=== PATIENT | male | born 1995 | race Caucasian/White ===

== ENCOUNTER 2021-11-23 19:29 | Emergency (ER) | payer OTHER ==
[~2021-11-23] VITALS: Ht 185.4 cm; Wt 106.6 kg
== END 2021-11-23 21:27 | disposition home or self-care (01) ==
LOC: ER 19:29
DX: J06.9 Acute upper respiratory infection, unspecified (principal); F10.20 Alcohol dependence, uncomplicated; Z20.822 Contact with and (suspected) exposure to COVID-19
CPT/HCPCS: 99283

== ENCOUNTER 2022-10-05 14:07 | Inpatient (IN) | payer OTHER ==
[~2022-10-05] VITALS: Ht 188 cm; Wt 138.4 kg
[2022-10-05 15:38] LABS: BASOPHILS ABSOLUTE AUTO 0.05 K/mm3 (0.00-0.23); BASOPHILS PERCENT AUTO 0 % (0-2); EOSINOPHILS PERCENT AUTO 0 % (0-6); Hemoglobin 14.3 g/dL (13.5-17.5); IMMATURE GRAN ABSOLUTE AUTO 0.24 K/mm3 (0.00-0.10); IMMATURE GRAN PERCENT AUTO 2 % (0-1); LYMPHOCYTES ABSOLUTE AUTO 1.44 K/mm3 (0.84-5.20); LYMPHOCYTES PERCENT AUTO 11 % (21-46); MONOCYTES ABSOLUTE AUTO 1.08 K/mm3 (0.16-1.47); MONOCYTES PERCENT AUTO 8 % (4-13); Mean Corpuscular HGB 34.2 pg (26.0-34.0); Mean Corpuscular HGB Conc 36.7 g/dL (31.5-36.5); Mean Corpuscular Volume 93 fL (80-100); Mean Platelet Volume 10.6 fL (9.1-12.4); NEUTROPHILS ABSOLUTE AUTO 10.24 K/mm3 (1.96-9.15); NEUTROPHILS PERCENT AUTO 79 % (41-73); NRBC ABSOLUTE 0.31 K/mm3 (0.00-0.02); NRBC Auto 2.4 /100 WBC (0.0-0.2); Platelet Count 159 K/mm3 (150-400); RDW Coefficient Variation 13.7 % (11.7-14.2); RDW Standard Deviation 46.8 fL (35.1-46.3); Red Blood Cell Count 4.18 M/mm3 (4.30-5.90); White Blood Cell Count 13.05 K/mm3 (4.00-11.30)
[2022-10-05 16:02] LABS: Albumin, Blood 2.6 g/dL (3.4-5.0); Albumin/Globulin Ratio 0.6 (0.8-1.8); Bilirubin, Total 1.7 mg/dL (0.1-1.0); Bun/Creatinine Ratio 13.5 (12.0-20.0); Calcium, Blood 8.4 mg/dL (8.5-10.1); Creatinine, Blood 1.55 mg/dL (0.60-1.20); Globulin, Blood 4.2 g/dL (2.2-4.0); Potassium, Blood 3.3 mmol/L (3.5-5.5); Total Protein, Blood 6.8 g/dL (6.4-8.2)
[2022-10-05 21:55] LABS: Magnesium, Blood 1.6 mg/dL (1.6-2.4); Phosphorus, Blood 4.5 mg/dL (2.5-4.9)
--- NOTE | 2022-10-06 01:22 | NUR ---
PATIENT IS A NEW ADMIT FROM THE ED. FOUR PERSON TRANSFER FROM [facility] TO BED. AXO X4 AND BEDREST. ON 2L O2 NC AND RA BASELINE. DENIES CHEST PAIN AND N/V. DARK LIQUID STOOLS. TELEMETRY PLACED AND TECH REPORTS ST 119. NS STARTED @ 200mL/HR X ONE BAG. ORIENTED TO ROOM AND CALL LIGHT SYSTEM. MILD TREMORS AND MILD PAROXYSMAL SWEATS WITH HEADACHE. RESTING IN BED. WCTM.
--- NOTE | 2022-10-06 04:39 | NUR ---
SHIFT SUMMARY PATIENT HAD NO ACUTE CHANGES. AXOX 4 AND BEDREST. ON 2L O2 NC AND RA BASELINE. PIVS REMAIN INTACT. NS INFUSING AT 200 mL/HR X ONE BAG. VSS WITH LOW GRADE TEMP. CIWA SCORE IS SIX. TYELNOL 650 MG GIVEN FOR PEREZ X ONE. CORPORATE HUMAN RESOURCES MANAGER REPORTS ST IN THE HIGH TEENS. USES URINAL AT BEDSIDE. REPORTS LAST DRINK 10/04 CLOSE TO MIDNIGHT. HOSPITALIST DR CARVAJAL ORDER MICONAZOLE POWDER FOR GROIN AREA RASH. BLACK LIQUID STOOLS. RESTING IN BED AWAKE MOST OF THE SHIFT. CALL LIGHT IN REACH. BED IN LOWEST POSITION. WILL CONTINUE TO MONITOR UNTIL DAY SHIFT NURSE ASSUMES CARE.
[2022-10-06 05:35] LABS: BASOPHILS ABSOLUTE AUTO 0.05 K/mm3 (0.00-0.23); BASOPHILS PERCENT AUTO 1 % (0-2); EOSINOPHILS ABSOLUTE AUTO 0.01 K/mm3 (0.00-0.68); EOSINOPHILS PERCENT AUTO 0 % (0-6); Hematocrit 33.7 % (37.0-53.0); IMMATURE GRAN ABSOLUTE AUTO 0.09 K/mm3 (0.00-0.10); IMMATURE GRAN PERCENT AUTO 1 % (0-1); LYMPHOCYTES PERCENT AUTO 17 % (21-46); MONOCYTES ABSOLUTE AUTO 0.51 K/mm3 (0.16-1.47); MONOCYTES PERCENT AUTO 6 % (4-13); Mean Corpuscular HGB Conc 35.6 g/dL (31.5-36.5); Mean Corpuscular Volume 96 fL (80-100); Mean Platelet Volume 10.2 fL (9.1-12.4); NEUTROPHILS ABSOLUTE AUTO 6.37 K/mm3 (1.96-9.15); NEUTROPHILS PERCENT AUTO 76 % (41-73); NRBC ABSOLUTE 0.04 K/mm3 (0.00-0.02); NRBC Auto 0.5 /100 WBC (0.0-0.2); Platelet Count 122 K/mm3 (150-400); RDW Coefficient Variation 13.4 % (11.7-14.2); RDW Standard Deviation 47.3 fL (35.1-46.3); Red Blood Cell Count 3.53 M/mm3 (4.30-5.90); White Blood Cell Count 8.43 K/mm3 (4.00-11.30)
[2022-10-06 05:58] LABS: Albumin, Blood 2.3 g/dL (3.4-5.0); Albumin/Globulin Ratio 0.7 (0.8-1.8); Bilirubin, Total 1.5 mg/dL (0.1-1.0); Bun/Creatinine Ratio 21.9 (12.0-20.0); Calcium, Blood 7.4 mg/dL (8.5-10.1); Creatinine, Blood 1.14 mg/dL (0.60-1.20); Globulin, Blood 3.4 g/dL (2.2-4.0); Magnesium, Blood 1.8 mg/dL (1.6-2.4); Phosphorus, Blood 3.8 mg/dL (2.5-4.9); Potassium, Blood 3.5 mmol/L (3.5-5.5); Total Protein, Blood 5.7 g/dL (6.4-8.2)
[2022-10-06 12:41] LABS: International Normalized Ratio 1.25; Prothrombin Time Results 12.9 Sec (9.7-11.5)
--- NOTE | 2022-10-06 16:12 | NUR ---
SHIFT SUMMARY PATIENT IS ALERT AND ORIENTED. PATIENT HAS HAD NO ACUTE EVENTS THIS SHIFT. PATIENT HAS HAD A HIGHER CIWA THIS MORNING BUT HAS TRENDED LOWER. MEDICATED PER EMAR. PATIENT WAS MEDICATED FOR PAIN ONCE FOR HAND CRAMPING. PATIENT HAS HAD NO NAUSEA, VOMITTING OR SOB THIS SHIFT. VITAL SIGNS REVIEWED. BED IN LOCKED AND LOWEST POSITION. CALL LIGHT IN PLACE. WILL MONITOR UNTIL SHIFT CHANGE.
--- NOTE | 2022-10-07 04:33 | NUR ---
Patient resting in bed, able to make needs known, has not moved from bed this shift.
[2022-10-07 06:02] LABS: Magnesium, Blood 1.9 mg/dL (1.6-2.4)
[2022-10-07 06:03] LABS: Albumin, Blood 2.4 g/dL (3.4-5.0); Albumin/Globulin Ratio 0.6 (0.8-1.8); Creatinine, Blood 0.82 mg/dL (0.60-1.20); Globulin, Blood 3.7 g/dL (2.2-4.0); Potassium, Blood 3.2 mmol/L (3.5-5.5); Total Protein, Blood 6.1 g/dL (6.4-8.2)
--- NOTE | 2022-10-07 16:12 | NUR ---
SHIFT SUMMARY PATIENT IS ALERT AND ORIENTED. PATIENT HAS HAD NO ACUTE EVENTS THIS SHIFT. VITAL SIGNS REVIEWED. PATIENT WORKED WITH PT TODAY WITH MILD SUCCESS. PT DETERMINED PATIENT TO WEAK TO STAND. PATIENT USING BEDPAN NOW, OF WHICH IS AN IMPROVEMENT FROM PRIOR SHIFTS. PATIENTS PARENTS ARE AWARE OF SITUATION AND THE NEED TO STAY LONGER.
--- NOTE | 2022-10-08 01:32 | NUR ---
Patient continually pulling telemetry leads off, patient educated on need for telemetry, patient expresses understanding, but continues to pull leads off and state it was a mistake.
[2022-10-08 04:52] LABS: BASOPHILS ABSOLUTE AUTO 0.06 K/mm3 (0.00-0.23); BASOPHILS PERCENT AUTO 1 % (0-2); EOSINOPHILS ABSOLUTE AUTO 0.03 K/mm3 (0.00-0.68); EOSINOPHILS PERCENT AUTO 1 % (0-6); Hematocrit 31.9 % (37.0-53.0); Hemoglobin 11.3 g/dL (13.5-17.5); IMMATURE GRAN ABSOLUTE AUTO 0.02 K/mm3 (0.00-0.10); IMMATURE GRAN PERCENT AUTO 1 % (0-1); LYMPHOCYTES ABSOLUTE AUTO 1.55 K/mm3 (0.84-5.20); LYMPHOCYTES PERCENT AUTO 36 % (21-46); MONOCYTES ABSOLUTE AUTO 0.55 K/mm3 (0.16-1.47); MONOCYTES PERCENT AUTO 13 % (4-13); Mean Corpuscular HGB 33.9 pg (26.0-34.0); Mean Corpuscular HGB Conc 35.4 g/dL (31.5-36.5); Mean Corpuscular Volume 96 fL (80-100); Mean Platelet Volume 10.4 fL (9.1-12.4); NEUTROPHILS ABSOLUTE AUTO 2.16 K/mm3 (1.96-9.15); NEUTROPHILS PERCENT AUTO 49 % (41-73); NRBC ABSOLUTE 0.02 K/mm3 (0.00-0.02); NRBC Auto 0.5 /100 WBC (0.0-0.2); Platelet Count 126 K/mm3 (150-400); RDW Coefficient Variation 13.2 % (11.7-14.2); RDW Standard Deviation 46.5 fL (35.1-46.3); Red Blood Cell Count 3.33 M/mm3 (4.30-5.90); White Blood Cell Count 4.37 K/mm3 (4.00-11.30)
--- NOTE | 2022-10-08 05:00 | NUR ---
Patient resting in bed at this time, continues to use urinal and bed gracia, has not gotten out of bed.
[2022-10-08 05:02] LABS: Albumin, Blood 2.4 g/dL (3.4-5.0); Albumin/Globulin Ratio 0.7 (0.8-1.8); Bilirubin, Total 0.8 mg/dL (0.1-1.0); Bun/Creatinine Ratio 11.1 (12.0-20.0); Calcium, Blood 7.9 mg/dL (8.5-10.1); Creatinine, Blood 0.72 mg/dL (0.60-1.20); Globulin, Blood 3.6 g/dL (2.2-4.0); Potassium, Blood 3.4 mmol/L (3.5-5.5)
[2022-10-08 13:02] LABS: Source, Urine Clean Catch
[2022-10-08 13:14] LABS: Appearance, Urine Clear (Clear); Bilirubin, Urine Neg (Neg); Blood, Urine Neg (Neg); Color, Urine Yellow (P-Yellow); Glucose Qualitative, Urine Neg (Neg); Ketones, Urine Neg (Neg); Leukocyte Esterase, Urine Neg (Neg); Nitrite, Urine Neg (Neg); Protein, Urine Neg (Neg); Specific Gravity, Urine 1.005 (1.003-1.022); Urobilinogen, Urine NORM (Normal)
--- NOTE | 2022-10-08 18:58 | NUR ---
SHIFT SUMMARY: PATIENT A&OX4. PLEASANT AND COOPERATIVE WITH CARE. USES CALL LIGHT APPROPRIATELY. PATIENT USES URINAL INDEPENDENTLY AND BEDPAN WITH 1 ASSIST. AROUND 1445 PATIENT WAS FOUND SITTING UP ON THE BATHROOM FLOOR. PATIENT REPORTS HE SLID DOWN TO THE FLOOR ON HIS RIGHT KNEE AND CRAWLED TO BATHROOM AND TRIED TO STAND AND FELL. PATIENT REPORTS THAT HE WAS DAY DREAMING. ASSESS PATIENT FOR ANY INJURY. VITAL SIGNS TAKEN AND TRANSFERRED BACK TO BED USING [facility] [place] 2[place] [facility] MATTR[facility]. [employer]AGE BROKER ALEXANDER WRAY WAS NOTIFIED AND CALLED HOSPITALIST BUT WAS NOT ABLE TO REACH AT THE TIME WAS PLACE. THIS RN LEFT A MESSAGE TO CALL BACK. VITAL SIGNS REVIEWED. BED ALARM ON FOR SAFETY AND CALL LIGHT IN REACH.
--- NOTE | 2022-10-09 03:25 | NUR ---
Patient resting in room, calling appropriately.
[2022-10-09 04:42] LABS: Hematocrit 32.6 % (37.0-53.0); Hemoglobin 11.3 g/dL (13.5-17.5); Mean Corpuscular HGB 33.6 pg (26.0-34.0); Mean Corpuscular HGB Conc 34.7 g/dL (31.5-36.5); Mean Corpuscular Volume 97 fL (80-100); Mean Platelet Volume 10.8 fL (9.1-12.4); NRBC ABSOLUTE 0.02 K/mm3 (0.00-0.02); NRBC Auto 0.5 /100 WBC (0.0-0.2); Platelet Count 131 K/mm3 (150-400); RDW Coefficient Variation 13.9 % (11.7-14.2); Red Blood Cell Count 3.36 M/mm3 (4.30-5.90); White Blood Cell Count 3.79 K/mm3 (4.00-11.30)
[2022-10-09 04:56] LABS: Albumin, Blood 2.4 g/dL (3.4-5.0); Albumin/Globulin Ratio 0.6 (0.8-1.8); Bilirubin, Total 0.6 mg/dL (0.1-1.0); Bun/Creatinine Ratio 9.9 (12.0-20.0); Calcium, Blood 7.9 mg/dL (8.5-10.1); Creatinine, Blood 0.61 mg/dL (0.60-1.20); Globulin, Blood 3.7 g/dL (2.2-4.0); Magnesium, Blood 2.1 mg/dL (1.6-2.4); Potassium, Blood 3.4 mmol/L (3.5-5.5); Total Protein, Blood 6.1 g/dL (6.4-8.2)
[2022-10-09 05:50] LABS: BAND PERCENT MAN 5 % (0-8); BASOPHILS ABSOLUTE MAN 0.03 K/mm3 (0.00-0.23); BASOPHILS PERCENT MAN 1 % (0-2); EOSINOPHILS ABSOLUTE MAN 0.07 K/mm3 (0.00-0.68); EOSINOPHILS PERCENT MAN 2 % (0-6); LYMPHOCYTES % ATYPICAL MANUAL 1 % (0-0); LYMPHOCYTES ABSOLUTE MAN 1.21 K/mm3 (0.84-5.20); LYMPHOCYTES PERCENT MAN 31 % (21-46); MONOCYTES ABSOLUTE MAN 0.34 K/mm3 (0.16-1.47); MONOCYTES PERCENT MAN 9 % (4-13); NEUTROPHILS ABSOLUTE MAN 2.12 K/mm3 (1.96-9.15); SEG NEUTROPHILS PERCENT MAN 51 % (41-73); TOTAL CELLS COUNTED 100
--- NOTE | 2022-10-09 09:24 | NUR ---
pt laying in bed watching tv, a/ox3, cooperative with care, follows commands, profoundly weak, unable to sit up on his own but can roll shoulders for assessment, lungs are clear in upper mandel, on r/a, resp even and unlabored, occ cough noted, he reports bringing up clear phlem, hrr, tachy, +1 edema noted to b/l le, ppp+2, cap refill <3sec, vs stable, afebrile, iv site is clear and patent, btx4, abd flat soft nontender, voids without diff, incont of stool and urine, but will ask for bedpan, had a loose brown stool this am, skin c/w/d, moves arms well, dpfe is very weak, sarwat, call light in reach.
--- NOTE | 2022-10-09 18:02 | NUR ---
pt has had multiple loose stools today, slept when left undisturbed. no acute changes this shift. call light in reach.
--- NOTE | 2022-10-10 03:38 | NUR ---
SHIFT SUMMARY NO OVERNIGHT EVENTS. DENIES ANY PAIN/SOB/S/S OF DISTRESS. PT USING URINAL, NO BM THIS SHIFT. PT ABLE TO USE CALL LIGHT. WILL CONTINUE TO MONITOR
[2022-10-10 04:42] LABS: BASOPHILS ABSOLUTE AUTO 0.03 K/mm3 (0.00-0.23); BASOPHILS PERCENT AUTO 1 % (0-2); EOSINOPHILS PERCENT AUTO 3 % (0-6); Hematocrit 32.6 % (37.0-53.0); Hemoglobin 11.3 g/dL (13.5-17.5); Mean Corpuscular HGB 33.6 pg (26.0-34.0); Mean Corpuscular HGB Conc 34.7 g/dL (31.5-36.5); Mean Corpuscular Volume 97 fL (80-100); Mean Platelet Volume 10.5 fL (9.1-12.4); Platelet Count 143 K/mm3 (150-400); RDW Coefficient Variation 14.1 % (11.7-14.2); RDW Standard Deviation 50.2 fL (35.1-46.3); Red Blood Cell Count 3.36 M/mm3 (4.30-5.90)
[2022-10-10 04:47] LABS: IMMATURE GRAN ABSOLUTE AUTO 0.02 K/mm3 (0.00-0.10); IMMATURE GRAN PERCENT AUTO 1 % (0-1); LYMPHOCYTES ABSOLUTE AUTO 1.79 K/mm3 (0.84-5.20); LYMPHOCYTES PERCENT AUTO 48 % (21-46); MONOCYTES ABSOLUTE AUTO 0.53 K/mm3 (0.16-1.47); MONOCYTES PERCENT AUTO 14 % (4-13); NEUTROPHILS ABSOLUTE AUTO 1.23 K/mm3 (1.96-9.15); NEUTROPHILS PERCENT AUTO 33 % (41-73)
[2022-10-10 05:04] LABS: Albumin, Blood 2.3 g/dL (3.4-5.0); Albumin/Globulin Ratio 0.6 (0.8-1.8); Bilirubin, Total 0.7 mg/dL (0.1-1.0); Bun/Creatinine Ratio 6.9 (12.0-20.0); Creatinine, Blood 0.58 mg/dL (0.60-1.20); Globulin, Blood 3.6 g/dL (2.2-4.0); Potassium, Blood 3.7 mmol/L (3.5-5.5); Total Protein, Blood 5.9 g/dL (6.4-8.2)
--- NOTE | 2022-10-10 08:00 | NUR ---
Pt laying in bed watching tv, a/ox3, pleasant and coopertive with care, states he slept ok, is doing ok,,resp are a bit fast, he states his breathing is ok, lungs are clear in upper mandel, a bit course in bases, faint wheeze in bases, sats are 97% on r/a, gave an I.S. and instructed him on it's use, reports an occational productive cough of clear sputum, hrr, +1 edema noted to b/l le, ppp+2, cap refill <3 sec, vs stable, afebrile, iv site to lfa is sluggish and a bit tender, puffy, asked charge to place another, btx4, complains of a bit of discomfort in rlq whith cough, voids clear yellow urine via urinal, skin has multiple bruisings, moves arms and upper body, legs are very weak, sarwat, call light in reach.
--- NOTE | 2022-10-10 18:05 | NUR ---
Pt doing well, he has had four loose stools today, started him on a probiotic, will send stool sample with next stool. parents were in today, expressed frustration that they haven't had communication for three days and doesn't know what is going on, notified Dr. Cheatham, he came to room to answer questions. iv was replaced today to rwrist, iv to lfa removed intact, no further changes this shift. call light in reach.
[2022-10-10 20:21] LABS: C DIFFICILE DNA NEGATIVE (Negative)
--- NOTE | 2022-10-11 03:47 | NUR ---
SHIFT SUMMARY NO OVERNIGHT EVENTS. PT STOOL SAMPLE NEGATIVE FOR C.DIFF. X2 BOWEL MOVEMENTS THIS SHIFT. USING URINAL. PT ABLE TO MAKE NEEDS KNOWN. WILL CONTINUE TO MONITOR
--- NOTE | 2022-10-11 18:30 | NUR ---
SHIFT SUMMARY PT A/O X4; PLEASANT AND COOPERATIVE WITH CARE. NO SS OF CURRENT ALCOHOL WITHDRAWAL. PT REMAINS VERY WEAK AND UNABLE TO GET UP TO A CHAIR TODAY. HOWEVER, PT DID WORK WITH PHYSICAL THERAPY AND CONTINUES TO AWAIT SNF PLACEMENT. VSS.
--- NOTE | 2022-10-12 03:34 | NUR ---
SHIFT SUMMARY NO OVERNIGHT EVENTS. X1 BM, USING URINAL. RESTING COMFORTABLY IN BED. DENIES SOB/PAIN/DISTRESS. ABLE TO MAKE NEEDS KNOWN. WILL CONTINUE TO MONITOR.
[2022-10-12] MEDS ORDERED: VISBIOME 112.51 EACH PO (12:44)
[2022-10-12] MEDS ORDERED: ONE DAILY ESS400 MCG PO (12:44)
[2022-10-12 13:20] LABS: Influenza A, PCR NEGATIVE (NEGATIVE); Influenza B, PCR NEGATIVE (NEGATIVE); Resp Syncytial Virus, PCR NEGATIVE (NEGATIVE); SARS-Cov-2 (COVID-19) PCR, MMC NEGATIVE (NEGATIVE)
--- NOTE | 2022-10-12 19:16 | NUR ---
DISCHARGE NOTE: PT A&O X4, PLEASANT AND COOPERATIVE. PT IV REMOVED WITH CATHETER INTACTED. PT BELONGINGS PACKED BY [employer] STITCHER KRYSTIN LYONS. PT LIFTED INTO CHAIR BY MECHANICAL LIFT INTO . TRANSPORT ESCORTED PT VIA TO [facility] TO BE TRANSPORTED TO [facility]. PT FAMILY NOTIFIED OF DISCHARGE AND TRANSPORTATION.
== END 2022-10-12 18:52 | DRG 897 ==
LOC: ER 14:07 → MEDS 21:19
PROVIDERS: Emergency Medicine; Family Medicine; Student in an Organized Health Care Education/Training Program; ADMIT Internal Medicine
DX: F10.239 Alcohol dependence with withdrawal, unspecified (principal); K92.2 Gastrointestinal hemorrhage, unspecified; N17.9 Acute kidney failure, unspecified; E87.1 Hypo-osmolality and hyponatremia; J45.909 Unspecified asthma, uncomplicated; E87.8 Other disorders of electrolyte and fluid balance, not elsewhere classified; F17.210 Nicotine dependence, cigarettes, uncomplicated; E66.9 Obesity, unspecified; E87.6 Hypokalemia; Z68.38 Body mass index [BMI] 38.0-38.9, adult; Z20.822 Contact with and (suspected) exposure to COVID-19; Z23 Encounter for immunization
CPT/HCPCS: 0241U; 36415; 71045; 76705; 80053; 81003; 83690; 83735; 84100; 84145; 85025; 85610; 86850; 86900; 86901; 87040; 87493; 90686; 94640; 94664; 94760; 96361; 96365; 96375; 97110; 97162; 97530; 99285-25; A9270; C9113; G0008; J0696; J1885; J2405; J3411; J7030; J7050

== ENCOUNTER 2023-07-12 18:04 | Emergency (ER) | payer OTHER ==
[~2023-07-12] VITALS: Ht 185.4 cm; Wt 136.1 kg
[~2023-07-12 18:04] MED LIST: ONE DAILY ESS400 MCG PO; VISBIOME 112.51 EACH PO
[2023-07-12 18:34] LABS: BASOPHILS PERCENT AUTO 1 % (0-2); EOSINOPHILS ABSOLUTE AUTO 0.24 K/mm3 (0.00-0.68); EOSINOPHILS PERCENT AUTO 2 % (0-6); Hemoglobin 16.2 g/dL (13.5-17.5); IMMATURE GRAN ABSOLUTE AUTO 0.06 K/mm3 (0.00-0.10); IMMATURE GRAN PERCENT AUTO 0 % (0-1); LYMPHOCYTES ABSOLUTE AUTO 2.57 K/mm3 (0.84-5.20); LYMPHOCYTES PERCENT AUTO 19 % (21-46); MONOCYTES PERCENT AUTO 7 % (4-13); Mean Corpuscular HGB 32.9 pg (26.0-34.0); Mean Corpuscular Volume 92 fL (80-100); Mean Platelet Volume 9.5 fL (9.1-12.4); NEUTROPHILS ABSOLUTE AUTO 9.88 K/mm3 (1.96-9.15); NEUTROPHILS PERCENT AUTO 72 % (41-73); Platelet Count 286 K/mm3 (150-400); RDW Coefficient Variation 12.3 % (11.7-14.2); RDW Standard Deviation 41.6 fL (35.1-46.3); Red Blood Cell Count 4.92 M/mm3 (4.30-5.90); White Blood Cell Count 13.75 K/mm3 (4.00-11.30)
[2023-07-12 18:56] LABS: Alanine Aminotransfer (ALT/SGP 126 U/L (12-78); Albumin/Globulin Ratio 0.9 (0.8-1.8); Alk Phos 99 U/L (50-136); Anion Gap 12 mmol/L (6-16); Aspartate Aminotrans (AST/SGOT 69 U/L (12-37); Bilirubin, Total 0.5 mg/dL (0.1-1.0); Blood Urea Nitrogen 7 mg/dL (8-24); Bun/Creatinine Ratio 10.8 (12.0-20.0); CO2, Blood 21 mmol/L (21-32); Calcium, Blood 9.3 mg/dL (8.5-10.1); Chloride, Blood 101 mmol/L (98-108); Creatinine, Blood 0.65 mg/dL (0.60-1.20); Globulin, Blood 4.5 g/dL (2.2-4.0); Glomerular Filtration Rate 133 (60-); Glucose, Blood 117 mg/dL (70-99); Potassium, Blood 3.6 mmol/L (3.5-5.5); Sodium, Blood 134 mmol/L (136-145); Total Protein, Blood 8.5 g/dL (6.4-8.2)
[2023-07-12 21:17] LABS: C-REACTIVE PROTEIN, EXT RANGE <0.290 mg/dL (0.000-0.300)
[2023-07-13] MEDS ORDERED: HYDR1TAB94 PO (01:22)
[2023-07-13] MEDS ORDERED: Ibuprofen600 MG PO (01:22)
[2023-07-13 01:36] VITALS: BP 135/79
[2023-07-13] MEDS ORDERED: IBUP600 PO (05:02)
[2023-07-13] MEDS ORDERED: OXAYDO5 M1 PO (05:02)
== END 2023-07-13 05:06 | disposition home or self-care (01) ==
LOC: ER 18:04
PROVIDERS: Medical Genetics Clinical Biochemical Genetics
DX: S72.052A Unspecified fracture of head of left femur, initial encounter for closed fracture (principal); X58.XXXA Exposure to other specified factors, initial encounter
CPT/HCPCS: 72192; 73502; 73560-LT; 80053; 85025; 85651; 86140; 96374; 96375; 99284-25; A9270; J1885; J2270; J2405